=== PATIENT | male | born 1960 | race Caucasian/White ===

== ENCOUNTER 2016-05-10 14:11 | Emergency (ER) | payer SELFPAY ==
[2016-05-10] MEDS ORDERED: KETOROLAC 60 MG/2 ML VIAL IM ONE (15:01)
== END 2016-05-10 16:03 | disposition home or self-care (01) ==
LOC: ER 14:11
DX: S29.012A Strain of muscle and tendon of back wall of thorax, initial encounter (principal); G89.11 Acute pain due to trauma; V49.40XA Driver injured in collision with unspecified motor vehicles in traffic accident, initial encounter; M51.34 Other intervertebral disc degeneration, thoracic region; Z87.891 Personal history of nicotine dependence; I10 Essential (primary) hypertension
CPT/HCPCS: 72050; 72072; 96372